=== PATIENT | female | born 1975 | race American Indian/Alaskan Native ===

== ENCOUNTER 2016-07-01 14:25 | Emergency (ER) | payer OTHER ==
[2016-07-01 14:39] VITALS: RESP 18; TEMP 98.8; O2SAT 99
[2016-07-01 14:40] VITALS: BMI 26.4
[2016-07-01] MEDS ORDERED: Sodium Chloride 0.9% 1,000 ML IV STA (14:48)
--- NOTE | 2016-07-01 14:59 | ED PDOC ---
Arrival/HPI - General Chief Complaint: Abdominal Pain Time Seen by Provider: 07/01/16 14:43 Historian: Patient - History of Present Illness Narrative History of Present Illness (Text): 07/01/16 14:57 Margaret Noyola is a 41 year old female who presents to the emergency department complaining of diffuse abdominal pain associated with nausea and diarrhea for past 4 days. Reports the quality of pain as a cramping sensation which developed after eating out 4 days prior. Reports that last menstrual period was last week. Denies any fever, chills, headache, chest pain, shortness of breath, vaginal discharge, urinary symptoms, or any other complaints at this time. 07/01/16 17:13 Time/Duration: < week (4 days ) Symptom Onset: Sudden Symptom Course: Unchanged Severity Level: Mild Activities at Onset: Light Past Medical History - Provider Review Nursing Documentation Reviewed: Yes - Infectious Disease Hx of Infectious Diseases: None - Psychiatric Hx Substance Use: No - Surgical History Hx Section: Yes (x2) - Anesthesia Hx Anesthesia Reactions: No Hx Malignant Hyperthermia: No Family/Social History - Physician Review Nursing Documentation Reviewed: Yes Family/Social History: No Known Family HX Smoking Status: Current Some Days Smoker Hx Alcohol Use: Yes Frequency of alcohol use: Socially Hx Substance Use: No Allergies/Home Meds Allergies/Adverse Reactions: Allergies No Known Allergies Allergy (Verified 07/01/16 14:39) Review of Systems - Physician Review All systems were reviewed & negative as marked: Yes - Review of Systems Constitutional: Normal. absent: Fatigue, Fevers Respiratory: Normal. absent: SOB, Cough Cardiovascular: Normal. absent: Chest Pain Gastrointestinal: Abdominal Pain, Diarrhea, Nausea. absent: Vomiting Genitourinary Female: Normal. absent: Dysuria, Vaginal Bleeding, Vaginal Discharge Neurological: Normal. absent: Headache, Dizziness Psychiatric: Normal Physical Exam Vital Signs Reviewed: Yes Vital Signs Temp Pulse Resp BP Pulse Ox 07/01/16 16:17 79 18 118/69 99 07/01/16 14:26 98.8 F 82 18 120/75 99 Temperature: Afebrile Blood Pressure: Normal Pulse: Regular Respiratory Rate: Normal Appearance: Positive for: Well-Appearing, Non-Toxic, Comfortable Pain Distress: None Mental Status: Positive for: Alert and Oriented X 3 - Systems Exam Head: Present: Atraumatic, Normocephalic Pupils: Present: PERRL Conjunctiva: Present: Normal Respiratory/Chest: Present: Clear to Auscultation, Good Air Exchange. No: Respiratory Distress, Accessory Muscle Use Cardiovascular: Present: Regular Rate and Rhythm, Normal S1, S2. No: Murmurs Abdomen: Present: Tenderness (diffuse non-focal tenderness worse epigastric. ), Normal Bowel Sounds. No: Distention, Peritoneal Signs, Rebound, Guarding Neurological: Present: GCS=15, CN II-XII Intact, Speech Normal, Motor Func Grossly Intact, Normal Sensory Function Skin: Present: Warm, Dry, Normal Color. No: Rashes Psychiatric: Present: Alert, Oriented x 3, Normal Insight, Normal Concentration Medical Decision Making ED Course and Treatment: 07/01/16 15:01 Impression: A 41 year old female who presents to the ed complaining of diffused abdominal cramps for past 3 days. consider viral syndrome, gastro, gastritis. no rlq. abd soft. minimal ttp. Plan: -- Labs -- Protonix -- IV fluids -- Zofran -- Urinalysis -- Reassess and disposition Progress Notes: 07/01/16 17:12 pt reassessed. pain improved. abd now with no ttp. no rlq ttp. pt states feels well for d/c. labs unremarkable. advise outpt f/u and return precautions. 07/01/16 17:13 - Lab Interpretations Narrative Lab Interpretation (Text): 07/01/16 17:13 Lab Results: 07/01/16 15:46 07/01/16 15:46 Lab Results 07/01/16 15:46: WBC 7.3, RBC 4.00, Hgb 12.2, Hct 36.5, MCV 91.3, MCH 30.5, MCHC 33.4, RDW 13.5, Plt Count 269, MPV 10.2, Gran % 69.3 H, Lymph % (Auto) 20.1 L, [place] % (Auto) 9.7 H, Eos % (Auto) 0.8 L, Baso % (Auto) 0.1, Gran # 5.07, Lymph # 1.5, [place] # 0.7 H, Eos # 0.1, Baso # 0.01, PT 11.1, INR 1.03, APTT 26.6, Sodium 136, Potassium 3.5 L, Chloride 100, Carbon Dioxide 27, Anion Gap 13, BUN 9, Creatinine 0.7, Est GFR ( Amer) > 60, Est GFR (Non-Af Amer) > 60, Random Glucose 87, Calcium 9.1, Total Bilirubin 0.5, AST 25, ALT 19, Alkaline Phosphatase 53, Total Protein 7.1, Albumin 3.8, Globulin 3.3, Albumin/Globulin Ratio 1.2, Lipase 17 L 07/01/16 15:00: Urine Color Dark yellow, Urine Appearance Sl cloudy, Urine pH 6.0, Ur Specific [place] 1.025, Urine Protein 30 H, Urine Glucose (UA) Negative , Urine Ketones Negative, Urine Blood Large H, Urine Nitrate Negative, Urine Bilirubin Small H, Urine Urobilinogen 0.2, Ur Leukocyte Esterase Negative, Urine RBC 2 - 5, Urine WBC 0 - 2, Ur Epithelial Cells 6 - 8, Urine Bacteria Mod , Urine HCG, Qual Negative I have reviewed the lab results: Yes - Medication Orders Current Medication Orders: Discontinued Medications Sodium Chloride (Sodium Chloride 0.9%) 1,000 mls @ 1,000 mls/hr IV .Q1H STA Stop: 07/01/16 15:47 Last Admin: 07/01/16 15:29 Dose: 1,000 MLS/HR eMAR Start Stop Document 07/01/16 15:29 LETITIA (Rec: 07/01/16 15:29 [id number]) Intravenous Solution Start Date 07/01/16 Start Time 15:29 End Date 07/01/16 End time 16:29 Total Infusion Time 60 Ketorolac Tromethamine (Toradol) 30 mg IVP STAT STA Stop: 07/01/16 16:23 Last Admin: 07/01/16 16:29 Dose: 30 MG IVP Administration Document 07/01/16 16:29 LETITIA (Rec: 07/01/16 16:29 [id number]) Charges for Administration # of IVP Administrations 1 Ondansetron HCl (Zofran Inj) 4 mg IVP STAT STA Stop: 07/01/16 14:49 Last Admin: 07/01/16 15:29 Dose: 4 MG IVP Administration Document 07/01/16 15:29 LETITIA (Rec: 07/01/16 15:29 [id number] Charges for Administration # of IVP Administrations 1 Pantoprazole Sodium (Protonix Inj) 40 mg IVP STAT STA Stop: 07/01/16 14:49 Last Admin: 07/01/16 15:29 Dose: 40 MG IVP Administration Document 07/01/16 15:29 LETITIA (Rec: 07/01/16 15:29 LETITIA [id number]) Charges for Administration # of IVP Administrations 1 - Scribe Statement The provider has reviewed the documentation as recorded by the Nicoibe Ted Ornelas Provider Attestation: All medical record entries made by the Scribe were at my direction and personally dictated by me. I have reviewed the chart and agree that the record accurately reflects my personal performance of the history, physical exam, medical decision making, and the department course for this patient. I have also personally directed, reviewed, and agree with the discharge instructions and disposition. Disposition/Present on Arrival - Present on Arrival Any Indicators Present on Arrival: No History of DVT/PE: No History of Uncontrolled Diabetes: No Urinary Catheter: No History of Decub. Ulcer: No History Surgical Site Infection Following: None - Disposition Have Diagnosis and Disposition been Completed?: Yes Diagnosis: Abdominal pain Disposition: HOME/ ROUTINE Disposition Time: 17:14 Condition: STABLE Discharge Instructions (ExitCare): Acute Abdominal Pain (ED) Additional Instructions: please see your doctor. and specialist. return to er with worsening symptoms or concerns. Prescriptions: Famotidine [Pepcid] 20 mg PO DAILY #20 tab Referrals: Erick Brunner [Primary Care Provider] - Follow up with primary Klever Owens MD [Staff Provider] - Follow up with primary
[2016-07-01 15:38] LABS: URINE APPEARANCE SL CLOUDY (CLEAR); URINE BILIRUBIN SMALL (NEGATIVE); URINE BLOOD LARGE (NEGATIVE); URINE COLOR DARK YELLOW (YELLOW); URINE GLUCOSE (UA) NEGATIVE (NEGATIVE); URINE KETONE NEGATIVE (NEGATIVE); URINE LEUKOCYTE ESTERASE NEGATIVE Leu/uL (NEGATIVE); URINE PROTEIN 30 mg/dL (<30 mg/dL); URINE UROBILINOGEN 0.2 E.U./dL (<1 E.U./dL)
[2016-07-01 15:54] LABS: URINE BACTERIA MOD (NEG); URINE WBC 0 - 2 /hpf (0-6)
[2016-07-01 15:54] LABS: ADD MANUAL DIFF? NO
[2016-07-01 16:10] LABS: BASO # 0.01 K/mm3 (0.0-2.0); BASO % 0.1 % (0.0-3.0); EOS # 0.1 (0.0-0.7); EOS % 0.8 % (1.5-5.0); GRAN # 5.07 (1.4-6.5); GRAN % 69.3 % (50.0-68.0); HEMATOCRIT 36.5 % (36.0-48.0); LYMPH # 1.5 (1.2-3.4); LYMPH % 20.1 % (22.0-35.0); MEAN CELL VOLUME 91.3 fL (80.0-105.0); MEAN CORPUSCULAR HEMOGLOBIN 30.5 pg (25.0-35.0); MEAN CORPUSCULAR HGB CONC 33.4 g/dl (31.0-37.0); MEAN PLATELET VOLUME 10.2 fl (7.0-11.0); MONO # 0.7 (0.1-0.6); MONO % 9.7 % (1.0-6.0); PLATELET COUNT 269 10^3/uL (120.0-450.0); RED CELL DISTRIBUTION WIDTH 13.5 % (11.5-14.5); WHITE BLOOD COUNT 7.3 10^3/ul (4.5-11.0)
[2016-07-01 16:17] VITALS: BP 118/69; PULSE 79
[2016-07-01 16:17] LABS: ALB/GLOB RATIO 1.2 (1.1-1.8); ALKALINE PHOSPHATASE 53 U/L (38-133); ALT/SGPT 19 U/L (7-56); AST/SGOT 25 U/L (15-39); BILIRUBIN,TOTAL 0.5 mg/dL (0.2-1.3); BLOOD UREA NITROGEN 9 mg/dL (7-21); CALCIUM 9.1 mg/dL (8.4-10.5); CARBON DIOXIDE 27 mmol/L (21-33); CHLORIDE 100 mmol/L (98-107); GFR AFRICAN-AMERICAN > 60; GLUCOSE,RANDOM 87 mg/dL (70-110); LIPASE 17 U/L (23-300); POTASSIUM 3.5 mmol/L (3.6-5.0); SODIUM 136 mmol/L (132-148); TOTAL PROTEIN 7.1 g/dL (5.8-8.3)
[2016-07-01 16:21] LABS: INR 1.03 (0.93-1.08); PARTIAL THROMBOPLASTIN TIME 26.6 Seconds (23.7-30.8)
== END 2016-07-01 17:31 | disposition home or self-care (01) ==
LOC: ED 14:25
DX: R10.9 Unspecified abdominal pain (principal)
CPT/HCPCS: 80053; 81001; 83690; 84703; 85025; 85610; 85730; 96361; 96374; 96375; 99283; C9113; J1885; J2405; J7040